=== PATIENT | male | born 1965 | race Hispanic/Latino ===

== ENCOUNTER 2021-04-27 06:04 | Day surgery (SDC) | payer BC ==
[2021-04-27] VITALS (8 sets, daily range): BP systolic 99–129; BP diastolic 68–94
[~2021-04-27] VITALS: Ht 182.9 cm; Wt 107.0 kg
[2021-04-27] MEDS ORDERED: 0.9%NACL 1000ML 1,000 ML IV ONE (06:49)
[2021-04-27] MEDS ORDERED: PROPOFOL 10 MG/ML 20ML VIAL IV ONE ×3 (07:06→07:30)
[2021-04-27] MEDS ORDERED: MEPERIDINE-PF 50 MG/ML SYG ONE (07:06)
[2021-04-27] MEDS ORDERED: LIDOCAINE PF 100MG/5ML (2%) SYRINGE 5ML ONE (07:06)
== END 2021-04-27 08:25 | disposition home or self-care (01) ==
LOC: ENDO 06:04 → DAH 06:04 → ENDO 08:25
PROVIDERS: ATTEND Internal Medicine
DX: Z12.11 Encounter for screening for malignant neoplasm of colon (principal); R93.3 Abnormal findings on diagnostic imaging of other parts of digestive tract; Z20.822 Contact with and (suspected) exposure to COVID-19; K57.30 Diverticulosis of large intestine without perforation or abscess without bleeding; D12.3 Benign neoplasm of transverse colon; D12.8 Benign neoplasm of rectum; I71.2 Thoracic aortic aneurysm, without rupture; R94.5 Abnormal results of liver function studies; I10 Essential (primary) hypertension; Z79.899 Other long term (current) drug therapy; Z98.890 Other specified postprocedural states
CPT/HCPCS: 43259; 45385; 87635; A4215 ×2; A4221; A4222; A4223; A4606; A4620; A4663; C9803; J2001; J2175; J2704 ×3; J7030

== ENCOUNTER → 2022-04-16 | Outpatient (CLI) | payer BC | END | disposition home or self-care (01) | LOC: LAB 12:20 | PROVIDERS: ATTEND Internal Medicine | DX: I10 Essential (primary) hypertension (principal) | CPT/HCPCS: 36415; 80053 ==

== ENCOUNTER → 2022-04-26 | Outpatient (CLI) | payer BC ==
[2022-04-16 14:22] LABS: CREATININE 0.9 mg/dL (0.5-1.5); POTASSIUM 4.9 mmol/L (3.5-5.1); TOTAL PROTEIN, SERUM 8.1 g/dL (6.0-8.3)
[~2022-04-26] MED LIST: IOHEXOL 350 MG/ML 100ML INFUS..BTL IV ONE
== END | disposition home or self-care (01) ==
LOC: RAH 07:54
PROVIDERS: ATTEND Internal Medicine
DX: K76.0 Fatty (change of) liver, not elsewhere classified (principal); I71.20 Thoracic aortic aneurysm, without rupture, unspecified
CPT/HCPCS: 71275; Q9967; 36415; 80053